=== PATIENT | female | born 1950 | race Caucasian/White ===

== ENCOUNTER → 2024-02-09 | Outpatient (CLI) | payer MEDICARE, BC ==
[~2024-02-09] VITALS: Ht 157.5 cm; Wt 44.9 kg
[~2024-02-09] MED LIST: ARIMIDEX1 MG PO; ASPIRIN E.C. 8181 MG PO; NEURONTIN300 MG/CAP PO; NORCO 325 MG-51 TAB PO; PRINIVIL20 MG PO; ZOCOR 20MG20 MG PO
[2024-02-09 11:15] VITALS: BP 118/70; PULSE 73; TEMP 98.2
[2024-02-09 12:35] VITALS: BP 110/64; PULSE 65
[2024-02-09 12:39] LABS: PLEURAL FLUID RBC 0 /mm3 (0-0); PLEURAL FLUID WBC 170 /mm3
[2024-02-09 12:41] LABS: PLEURAL FLUID COLOR YELLOW
[2024-02-09 12:44] LABS: PLEURAL FLUID APPEARANCE CLEAR
--- NOTE | 2024-02-09 12:52 | NUR ---
DR. VIVAS REVIEWED CHEST X RAY AND STATES THAT PATIENT LOOKS GOOD TO GO WITH NO PNEUMO PRESENT.
--- NOTE | 2024-02-09 13:04 | NUR ---
PATIENT HAS COMPLETED HER RECOVERY. PATIENT IS AWAKE AND ALERT AND DENIES ANY PAIN. BANDAGE REMAINS CLEAN, DRY, AND INTACT. PATIENT DRESSED HERSLEF WIHTOUT ASSISTANCE. ESCORTED PATIENT VIA WHEELCHAIR WITH ALL OF HER PERSONAL ITEMS TO PATIENT ENTRANCE WHERE HER RIDE PICKED HER UP. PATIENT GOT INTO FRONT PASSENGER SEAT WITHOUT ANY ASSISTANCE. ALL NEEDS MET.
== END ==
LOC: COL.RAD 10:56
PROVIDERS: Internal Medicine
DX: C50.811 Malignant neoplasm of overlapping sites of right female breast (principal); J90 Pleural effusion, not elsewhere classified
CPT/HCPCS: 19804